=== PATIENT | male | born 1935 | race Caucasian/White ===

== ENCOUNTER 2018-09-03 16:30 | Observation (INO) | payer MEDICARE, OTHER ==
[~2018-09-03] VITALS: Ht 177.8 cm; Wt 73.9 kg
[~2018-09-03 16:30] MED LIST: ANUCORT-HC25 MG RE; ASPIRIN LOW DOS81 MG PO; CALCIUM D- PO; CEPHALEXIN500 MG PO; GARLIC OIL 15003 MG PO; GAS-1 OR; METAMUCIL28 % PO; MINERAL; MULTI FOR HIM PO; MULTIVITAMI1 OR; PROCTOSOL HC2.5 % RE; RANITIDINE150 M1 OR; SIMVASTATIN40 MG PO; SIMVASTATIN80 MG PO; [UNRECOGNIZED DRUG - OTHER] PO
--- NOTE | 2018-09-03 17:08 | NUR ---
PT AWARE OF BUSY ED AND WAIT TIME. PT AMBUALTED BACK TO WAITING ROOM TO AWAIT ROOM ASSIGNMENT.
--- NOTE | 2018-09-03 17:34 | NUR ---
PT AMBUALTED TO ROOM WITH A STEADY GAIT.
[2018-09-03 18:31] LABS: HEMATOCRIT 41.1 % (39.0-50.0); HEMOGLOBIN 14.4 g/dl (14.0-18.0); IMMATURE GRANULOCYTES 0.2 % (0.0-5.0); MEAN CELL VOLUME 92.8 fL CALC (80.0-100.0); MEAN CORPUSCULAR HGB 32.5 pG CALC (26.0-32.0); NEUT# 3.72 thou/uL (1.82-7.42); RED BLOOD COUNT 4.43 mill/uL (4.70-6.10); RED CELL DISTRI WIDTH 12.2 % (11.5-15.5); URINE BILIRUBIN - DIPSTICK NEGATIVE (NEGATIVE); URINE BLOOD DIPSTICK NEGATIVE (NEGATIVE); URINE COLOR YELLOW; URINE GLUCOSE - DIPSTICK NEGATIVE (NEGATIVE); URINE KETONE NEGATIVE (NEGATIVE); URINE LEUK ESTERASE NEGATIVE (NEGATIVE); URINE NITRITE - DIPSTICK NEGATIVE (Negative); URINE PH 5.5 (4.5-8.0); URINE PROTEIN - DIPSTICK NEGATIVE (NEG-TRACE); URINE UROBILINOGEN - DIPSTICK 0.2 E.U./dL (0.2)
[2018-09-03 18:40] LABS: ALKALINE PHOSPHATASE 74 u/l (38-126); ANION GAP 17 (6-22 (CALC)); BILIRUBIN, TOTAL 2.5 mg/dL (0.0-1.4); BUN 19 mg/dL (8-23); BUN/CREATININE RATIO 19 (12-20 (CALC)); CARBON DIOXIDE 25 mmol/l (22-30); CHLORIDE 102 mmol/l (95-108); GFR > 60 ML/MIN (>=60 (CALC)); GFR FOR AFR.AMER. > 60 ML/MIN (>=60 (CALC)); LIPASE 62 u/l (23-300); POTASSIUM 4.4 mmol/l (3.5-5.1); SGOT/AST 34 u/l (19-48); SODIUM 139 mmol/l (137-146); TOTAL PROTEIN 7.5 g/dL (6.3-8.2)
--- NOTE | 2018-09-03 19:56 | NUR ---
PT UPDATED ON KNOWN RESULTS, WAITS IN ROOM FOR CT RESULT.
[2018-09-03] MEDS ORDERED: SIMVASTATIN20 MG PO (20:58)
[2018-09-03] MEDS ORDERED: MULTI VIT PO (20:59)
[2018-09-03] MEDS ORDERED: XALATAN0.005 % OU (21:01)
--- NOTE | 2018-09-03 21:20 | NUR ---
PT TAKEN TO ROOM 284 WITHOUT INCIDENT, REPORT WAS TO DAVIS.
[2018-09-03 21:30] VITALS: BP 122/59
--- NOTE | 2018-09-03 22:09 | NUR ---
REPORT GIVEN BY ABIGAIL ZAMORANO. PATIENT ARRIVED VIA WHEELCHAIR AT 2111. ALERT AND ORIENTED X 4. RESP EVEN AND UNLABORED. NO S/S OF DISTRESS NOTED. PAIN CURRENTLY O/10. ORIENTED TO ROOM, BED, AND CALL LIGHT. CALL LIGHT WITHIN REACH. PLAN OF CARE DISCUSSED. PATIENT INFORMED TO CALL WITH ANY QUESTIONS OR CONCERNS. BOWEL SOUNDS PRESENT.
[2018-09-04] VITALS (11 sets, daily range): BP systolic 97–132; BP diastolic 39–79
--- NOTE | 2018-09-04 00:16 | NUR ---
PATIENT RESTING WITHE EYES CLOSED. RESP EVEN AND UNLABORED. NO S/S OF DISTRESS NOTED.
--- NOTE | 2018-09-04 04:51 | NUR ---
PATIENT AWAKE IN BED WATCHING TV. RESP EVEN AND UNLABORED. NO S/S OF DISTRESS NOTED.
[2018-09-04 07:25] LABS: HEMATOCRIT 40.4 % (39.0-50.0); HEMOGLOBIN 14.1 g/dl (14.0-18.0); IMMATURE GRANULOCYTES 0.2 % (0.0-5.0); MEAN CELL VOLUME 93.1 fL CALC (80.0-100.0); MEAN CORPUSCULAR HGB 32.5 pG CALC (26.0-32.0); MEAN CORPUSCULAR HGB CONC 34.9 g/L CALC (32.0-36.0); NEUT# 2.49 thou/uL (1.82-7.42); RED BLOOD COUNT 4.34 mill/uL (4.70-6.10); RED CELL DISTRI WIDTH 11.9 % (11.5-15.5)
[2018-09-04 07:38] LABS: ALKALINE PHOSPHATASE 63 u/l (38-126); AMYLASE 37 u/l (30-110); ANION GAP 15 (6-22 (CALC)); BILIRUBIN, TOTAL 2.6 mg/dL (0.0-1.4); BUN 14 mg/dL (8-23); BUN/CREATININE RATIO 17 (12-20 (CALC)); CARBON DIOXIDE 27 mmol/l (22-30); CHLORIDE 104 mmol/l (95-108); CREATININE 0.8 mg/dL (0.7-1.3); GFR > 60 ML/MIN (>=60 (CALC)); GFR FOR AFR.AMER. > 60 ML/MIN (>=60 (CALC)); LIPASE 48 u/l (23-300); MAGNESIUM 1.8 mg/dL (1.6-2.3); POTASSIUM 4.3 mmol/l (3.5-5.1); SGOT/AST 27 u/l (19-48); SODIUM 140 mmol/l (137-146); TOTAL PROTEIN 6.3 g/dL (6.3-8.2)
--- NOTE | 2018-09-04 08:30 | NUR ---
PT RESTING IN BED, NO SIGNS OF DISTRESS NOTED, RESP EVEN AND UNLABORED. PT ALERT AND ORIENTED X3, NO EDEMA. DISCUSSED POC, DR UREÑA TO SEE PT TODAY. PT NPO, IVF INFUSING WITHOUT DIFFICULTY. VSS, ASSESSEMENT COMPLETED. CALL LIGHT IN REACH,CONTINUE TO MONITOR.
--- NOTE | 2018-09-04 10:30 | NUR ---
IN TO SEE PT, DISCUSSED SURGERY TO PT, PT AND IN AGREEMENT FOR LAP APPY POSS OPEN. INFORMED PT TO REMOVE ALL JEWELRY, HEARING AIDS AND UNDERGARMENTS, VERBALIZED UNDERSTANDING.PT VOIDED AT THIS TIME. CALL LIGHT IN REACH,CONTINUE TO MONITOR.
--- NOTE | 2018-09-04 10:50 | NUR ---
OR TEAM CALLED AND ORDERS TO OBTAIN CONSENT BY DR UREÑA FOR KRISTINA GOODE, CONSENT SIGNED. CALL LIGHT IN REACH, AWAITING OR.
--- NOTE | 2018-09-04 11:37 | NUR ---
PT TAKEN TO OR VIA STRETCHER BY KIM ZAMORANO, PT STABLE. CONTINUE TO MONITOR.
--- NOTE | 2018-09-04 13:40 | NUR ---
PT RETURNED FROM OR, ALERT AND ORIENTED X3, AWAKE. NO SIGNS OF DISTRESS NOTED, RESP EVEN AND UNLABORED. PT ASSISTED HIMSELF FROM STRETCHER TO BED, CONTINUED IVF, PLACED ON SCD'S. DISCUSSED DEEP BREATHING TECHNIQUES, PT HAS 3 DRESSINGS TO ABD CDI. PT REQUESTING LUNCH. CALL LIGHT IN REACH,CONTINUE TO MONITOR.
--- NOTE | 2018-09-04 16:14 | NUR ---
PT MEDICATED FOR PAIN WITH LORTAB, NO SIGNS OF DISTRESS NOTED, RESP EVEN AND UNLABORED. CALL LIGHT IN REACH,CONTINUE TO MONITOR.
--- NOTE | 2018-09-04 17:09 | NUR ---
IS BROUGHT TO BEDSIDE, PT EDUCATED AND DEMONSTRATED USE OF IS. TOTAL VOLUME 1000ML. DRESSING TO UMBILICUS SATURATED WITH BLOOD. DRESSING CHANTED, NO ACTIVE BLEEDING NOTED. PT TOLERATED WELL. CALL LIGHT IN REACH,CONTINUE TO MONITOR.
--- NOTE | 2018-09-04 19:30 | NUR ---
PATIENT RESTING IN BED AT THIS TIME-AWAKE ALERT AND ORIENTEDX. IV SITE LEFT FOREARM IN PLACE WITH D51/2NS PATENT AND INFUSING AT 75CC/HR. SITE APPEARS HEALTHY AT THIS TIME. SCD'S INPLACE. ENCOURAGED USE OF IS Q1H WHILE AWAKE. ABD WITH DRESSINGX3 INTACT-SMALL AMT OF BLOODY DRAINAGE NOTED TO LLQ DRESSING. SAFETY PRECAUTIONS REINFORCED. CALL LIGHT IN REACH. WILL CONT TO MONITOR.
--- NOTE | 2018-09-05 00:38 | NUR ---
PATIENT ASSISTED TO SIDE 0OF THE BED TO TRY TO URINATE BUT WAS UNABLE TO VOID AT THIS TIME. PATIENT ASSISTED BACK TO BED AND BECOMES VERY RIGID WHEN TRYING TO SIT BACK DOWN ON THE BED-ATATES THAT HE IS HAVEIN ALOT OF POST-OP ABD PAIN. 7/10 ON PAIN SCALE. PATIENT MEDICATED WITH LORTAB 5/325MG PO FOR PAIN. AWAITING BLADDER SCANNER TO SCAN [PATIENT. CALL LIGHT IN REACH. WILL CONT TO MONITOR.
--- NOTE | 2018-09-05 01:09 | NUR ---
PATIENT RESTING IN BED-STATES THAT HE FEELS LIKE HE HAS TO URINATE BY UNABLE TO AT THIS TIME. BLADDER SCAN DONE TO REVEAL-426CC. PATIENT IS SLIGHTLY DISTENDED. #16 TURKMEN ALVAREZ CATH INSERTED WITHOUT ANY DIFFICULTY DRAINING RAMSEY URINE-APPROX 400CC AT THIS TIME. CALL LIGHT IN REACH. WILL CONT TO MONITOR.
[2018-09-05 04:25] VITALS: BP 111/65
[2018-09-05 06:06] LABS: IMMATURE GRANULOCYTES 0.3 % (0.0-5.0); MEAN CELL VOLUME 94.4 fL CALC (80.0-100.0); MEAN CORPUSCULAR HGB 32.9 pG CALC (26.0-32.0); MEAN CORPUSCULAR HGB CONC 34.8 g/L CALC (32.0-36.0); NEUT# 4.89 thou/uL (1.82-7.42); RED BLOOD COUNT 3.04 mill/uL (4.70-6.10); RED CELL DISTRI WIDTH 12.2 % (11.5-15.5)
[2018-09-05 06:10] LABS: HEMATOCRIT 28.7 % (39.0-50.0)
[2018-09-05 06:23] LABS: ANION GAP 12 (6-22 (CALC)); BUN 16 mg/dL (8-23); BUN/CREATININE RATIO 15 (12-20 (CALC)); CARBON DIOXIDE 26 mmol/l (22-30); CHLORIDE 101 mmol/l (95-108); CREATININE 1.1 mg/dL (0.7-1.3); GFR > 60 ML/MIN (>=60 (CALC)); GFR FOR AFR.AMER. > 60 ML/MIN (>=60 (CALC)); POTASSIUM 4.6 mmol/l (3.5-5.1); SODIUM 134 mmol/l (137-146)
[2018-09-05 08:41] VITALS: BP 107/58
[2018-09-05 11:28] LABS: HEMATOCRIT 30.9 % (39.0-50.0); HEMOGLOBIN 10.5 g/dl (14.0-18.0)
[2018-09-05 11:40] VITALS: BP 116/54
--- NOTE | 2018-09-05 13:20 | NUR ---
PT RESTING IN BED, INFORMED PT OF REMOVAL OF ALVAREZ CATHETER, PT IN AGREEMENT. 10CC OF WATER REMOVED FROM BALLOON, CATHETER REMOVED AND CATHETER INTACT. PERICARE PROVIDED. CALL LIGHT IN REACH,CONTINUE TO MONITOR.
--- NOTE | 2018-09-05 14:49 | NUR ---
PT VOIDED 100CC OF CLEAR YELLOW URINE. VOICES NO NEEDS OR COMPLAINTS AT THIS TIME. CALL LIGHT IN REACH,CONTINUE TO MONITOR.
[2018-09-05] MEDS ORDERED: TRAMADOL HYDROC50 MG PO (16:13)
[2018-09-05 17:06] VITALS: BP 107/56
--- NOTE | 2018-09-05 17:30 | NUR ---
DISCUSSED DISCHARGE PLANS WITH AND PT, DRESSINGS TO ABD CHANGED, 2 VÍCTOR TO L SIDE ABD INTACT NO BLEEDING, 4 VÍCTOR TO LOWER ABD INTACT, NO BLEEDING. THIRD TO ABD NO BLEEDING. SECURED WITH TEAGADERM. PRESCRIPTIONS GIVEN TO PT, IV SITE REMOVED, CATHETER INTACT.
--- NOTE | 2018-09-05 17:38 | NUR ---
Discharge instructions given. Patient verbalizes understanding of same. Discharged in stable condition via Wheelchair to Home with spouse. All belongings sent with pt.
== END 2018-09-05 17:38 | disposition home or self-care (01) ==
LOC: ED 16:30 → ED-I 20:00 → ED 20:44 → MS2 20:45
PROVIDERS: Family Medicine; Nurse Practitioner Family; ADMIT Internal Medicine Nephrology; ATTEND Internal Medicine
PROC: 0DTJ4ZZ Resection of Appendix, Percutaneous Endoscopic Approach (ICD-10-PCS; principal; 2018-09-04)
PROC: 0T9B70Z Drainage of Bladder with Drainage Device, Via Natural or Artificial Opening (ICD-10-PCS; 2018-09-05)
DX: K35.80 Unspecified acute appendicitis (principal); K38.1 Appendicular concretions; I10 Essential (primary) hypertension; E78.5 Hyperlipidemia, unspecified; Z95.0 Presence of cardiac pacemaker; Z85.46 Personal history of malignant neoplasm of prostate; R33.9 Retention of urine, unspecified
CPT/HCPCS: J0131; J2710; Q9967

== ENCOUNTER 2018-09-08 14:23 | Emergency (ER) | payer MEDICARE, OTHER ==
[~2018-09-08] VITALS: Ht 177.8 cm; Wt 84.0 kg
[~2018-09-08 14:23] MED LIST changes: +MULTI VIT PO; +SIMVASTATIN20 MG PO; +TRAMADOL HYDROC50 MG PO; +XALATAN0.005 % OU
[2018-09-08 15:45] LABS: HEMATOCRIT 29.2 % (39.0-50.0); HEMOGLOBIN 9.9 g/dl (14.0-18.0); IMMATURE GRANULOCYTES 0.2 % (0.0-5.0); MEAN CELL VOLUME 96.1 fL CALC (80.0-100.0); MEAN CORPUSCULAR HGB 32.6 pG CALC (26.0-32.0); MEAN CORPUSCULAR HGB CONC 33.9 g/L CALC (32.0-36.0); NEUT# 3.43 thou/uL (1.82-7.42); RED BLOOD COUNT 3.04 mill/uL (4.70-6.10); RED CELL DISTRI WIDTH 12.4 % (11.5-15.5); URINE BILIRUBIN - DIPSTICK NEGATIVE (NEGATIVE); URINE BLOOD DIPSTICK NEGATIVE (NEGATIVE); URINE COLOR YELLOW; URINE GLUCOSE - DIPSTICK NEGATIVE (NEGATIVE); URINE KETONE NEGATIVE (NEGATIVE); URINE LEUK ESTERASE NEGATIVE (NEGATIVE); URINE NITRITE - DIPSTICK NEGATIVE (Negative); URINE PH 6.5 (4.5-8.0); URINE PROTEIN - DIPSTICK NEGATIVE (NEG-TRACE); URINE SPECIFIC GRAVITY <=1.005; URINE UROBILINOGEN - DIPSTICK 0.2 E.U./dL (0.2)
[2018-09-08 16:01] LABS: ALBUMIN 3.8 g/dL (3.2-5.0); ALKALINE PHOSPHATASE 60 u/l (38-126); ANION GAP 13 (6-22 (CALC)); BILIRUBIN, TOTAL 2.5 mg/dL (0.0-1.4); BUN 17 mg/dL (8-23); BUN/CREATININE RATIO 18 (12-20 (CALC)); CARBON DIOXIDE 29 mmol/l (22-30); CHLORIDE 98 mmol/l (95-108); GFR > 60 ML/MIN (>=60 (CALC)); GFR FOR AFR.AMER. > 60 ML/MIN (>=60 (CALC)); POTASSIUM 4.4 mmol/l (3.5-5.1); SGOT/AST 31 u/l (19-48); SODIUM 135 mmol/l (137-146); TOTAL PROTEIN 6.1 g/dL (6.3-8.2)
[2018-09-08] MEDS ORDERED: TRAMADOL HCL50 MG PO (16:57)
[2018-09-08 17:08] VITALS: BP 144/72
== END 2018-09-08 17:08 | disposition home or self-care (01) ==
LOC: ED 14:23
PROVIDERS: Family Medicine
DX: R10.31 Right lower quadrant pain (principal); I10 Essential (primary) hypertension; Z95.0 Presence of cardiac pacemaker; Z85.46 Personal history of malignant neoplasm of prostate; Z98.890 Other specified postprocedural states

== ENCOUNTER 2019-07-10 04:31 | Emergency (ER) | payer MEDICARE, OTHER ==
[~2019-07-10] VITALS: Ht 177.8 cm; Wt 90.0 kg
[~2019-07-10 04:31] MED LIST changes: +TRAMADOL HCL50 MG PO
[2019-07-10 05:43] LABS: HEMATOCRIT 36.6 % (39.0-50.0); HEMOGLOBIN 12.7 g/dl (14.0-18.0); IMMATURE GRANULOCYTES 0.2 % (0.0-5.0); MEAN CELL VOLUME 92.9 fL CALC (80.0-100.0); MEAN CORPUSCULAR HGB 32.2 pG CALC (26.0-32.0); MEAN CORPUSCULAR HGB CONC 34.7 g/L CALC (32.0-36.0); NEUT# 3.71 thou/uL (1.82-7.42); RED BLOOD COUNT 3.94 mill/uL (4.70-6.10); RED CELL DISTRI WIDTH 12.5 % (11.5-15.5)
[2019-07-10 05:44] LABS: URINE BILIRUBIN - DIPSTICK NEGATIVE (NEGATIVE); URINE BLOOD DIPSTICK LARGE (NEGATIVE); URINE COLOR RED; URINE GLUCOSE - DIPSTICK NEGATIVE (NEGATIVE); URINE KETONE NEGATIVE (NEGATIVE); URINE LEUK ESTERASE TRACE (NEGATIVE); URINE PROTEIN - DIPSTICK 100 mg/dL (NEG-TRACE)
[2019-07-10 05:49] LABS: URINE NITRITE - DIPSTICK POSITIVE (Negative)
[2019-07-10 05:53] LABS: ALKALINE PHOSPHATASE 65 u/l (38-126); ANION GAP 14 (6-22 (CALC)); BUN 22 mg/dL (8-23); BUN/CREATININE RATIO 28 (12-20 (CALC)); CARBON DIOXIDE 24 mmol/l (22-30); CHLORIDE 105 mmol/l (95-108); CREATININE 0.8 mg/dL (0.7-1.3); GFR > 60 ML/MIN (>=60 (CALC)); GFR FOR AFR.AMER. > 60 ML/MIN (>=60 (CALC)); POTASSIUM 4.2 mmol/l (3.5-5.1); SGOT/AST 30 u/l (19-48); SODIUM 138 mmol/l (137-146); TOTAL PROTEIN 6.8 g/dL (6.3-8.2)
[2019-07-10 05:54] LABS: BILIRUBIN, TOTAL 1.3 mg/dL (0.0-1.4)
[2019-07-10 05:59] LABS: URINE RBC TNTC RBC/hpf (0-5)
[2019-07-10] MEDS ORDERED: BACTRIM DS1 TAB PO (06:23)
[2019-07-10 07:00] VITALS: BP 120/62
== END 2019-07-10 07:03 | disposition home or self-care (01) ==
LOC: ED 04:31
PROVIDERS: Family Medicine
DX: N39.0 Urinary tract infection, site not specified (principal); I10 Essential (primary) hypertension